=== PATIENT | female | born 1945 | race Caucasian/White ===

== ENCOUNTER → 2020-12-02 | Outpatient (CLI) | payer OTHER | LOC: KOH-I 16:09 | DX: M25.512 Pain in left shoulder (principal) | CPT/HCPCS: 73030 ==

== ENCOUNTER → 2021-03-08 | Outpatient (CLI) | payer MEDICARE | LOC: ECHO 12:15 | DX: R60.0 Localized edema (principal); R94.39 Abnormal result of other cardiovascular function study | CPT/HCPCS: ECHO; 93306 ==